=== PATIENT | male | born 1960 | race Caucasian/White ===

== ENCOUNTER 2018-11-06 12:43 | Emergency (ER) | payer SELFPAY ==
[2018-11-06] MEDS ORDERED: LIDOCAINE 1% INJ-PF (10 MG/ML) 30 ML SDV INJ ONE (13:26)
--- NOTE | 2018-11-06 15:55 | ER Document Report ---
ED General - General Mode of Arrival: Ambulatory Information source: Patient - HPI Patient complains to provider of: hand injury Onset: Other - 58 yo right hand dominant man that presents for evaluation of of injury to the right hand after hitting his hand against a table saw. HE had pain immediately thereafter and bleeding. He hasn't seen a physician in many years. has no known health problems. - General Chief Complaint: Laceration Stated Complaint: LEFT HAND INJURY Time Seen by Provider: 11/06/18 12:59 - Related Data Allergies/Adverse Reactions: No Known Allergies Allergy (Unverified 11/06/18 14:35) Past Medical History - General Information source: Patient - Social History Smoking Status: Former Smoker Smoking Education Provided: Yes Frequency of alcohol use: Rare Drug Abuse: None Family History: None Patient has suicidal ideation: No Patient has homicidal ideation: No Renal/ Medical History: Denies: Hx Peritoneal Dialysis Review of Systems - Review of Systems -: Yes All other systems reviewed and negative Physical Exam - General General appearance: Appears well, Alert - HEENT Head: Normocephalic, Atraumatic Eyes: Normal Pupils: PERRL - Respiratory Respiratory status: No respiratory distress Chest status: Nontender Breath sounds: Normal Chest palpation: Normal - Cardiovascular Rhythm: Regular Heart sounds: Normal auscultation Murmur: No - Abdominal Inspection: Normal Distension: No distension Bowel sounds: Normal Tenderness: Nontender Organomegaly: No organomegaly - Back Back: Normal, Nontender - Extremities General lower extremity: Normal inspection, Nontender, Normal ROM, Normal strength Shoulder: Normal Arm: Normal Elbow: Normal Forearm: Normal Wrist: Normal - the palm in normal in appearance There is normal ROM in the PIP , MIP, DIP There is near complete loss of the pad of the right index finger to a depth of 2-3 mm the third digit has a flap like laceration extening from the proximal MIP distally extending to the base of the DIP 4th digit with a similar lacceration 5th digit has near obliteration of the pad of the DIP with macerated and mushy tissue - Neurological Neuro grossly intact: Yes Cognition: Normal Orientation: AAOx4 Isak Coma Scale Eye Opening: Spontaneous Isak Coma Scale Verbal: Oriented Isak Coma Scale Motor: Obeys Commands [place] Coma Scale Total: 15 Speech: Normal Motor strength normal: LUE, RUE, LLE, RLE Sensory: Normal - Psychological Associated symptoms: Normal affect, Normal mood - Vital signs Vitals: Temp Pulse Resp BP Pulse Ox 97.7 F 103 H 20 134/94 H 97 11/06/18 12:59 11/06/18 12:59 11/06/18 12:59 11/06/18 12:59 11/06/18 12:59 Course - Re-evaluation Re-evalutation: 58 yo with wounds as described. Incidentally he was identified as having hyperglycemia. His wound was repaired as described. He was anesthetized and copiously irrigated via tap. Dr. Hwang loom control chain builder orthopedic surgeon loom control chain builder was consulted, he notes patient can be seen in clinic this week. The wound was repaired with dermabond as well as prolene. a reasonable cosmetic effect was obtained but hemostasis was achieved. The patient had an an intact motor exam thereafter. His initial minor deficit of loss of 2 point perception in the distal aspect of the fifth digit was unchanged. He was given a referral for orthopedic follow up in 2-5 days. He was instructed on wound dressing. He was instructed on suture removal. He was started on keflex prophylactically. He was started on metformin for his diabetes. He was incouraged to follow up for his diabetes care. He was ambulatory, able to tolerate po and well appearing at the time of discharge. (BERNICE HEWITT) - Vital Signs Vital signs: Temp Pulse Resp BP Pulse Ox 97.6 F 106 H 20 108/82 95 11/06/18 16:49 11/06/18 16:49 11/06/18 12:59 11/06/18 16:49 11/06/18 16:49 - Laboratory Laboratory results interpreted by me: 11/06/18 12:54 POC Glucose > 550 H* Procedures - Laceration/Wound Repair Right Hand Wound length (cm): 12 Wound's Depth, Shape: Into muscle, Irregular, Flap, Stellate, Contused tissue Laceration pre-procedure: Sterile PPE donned, Chloraprep applied, Sterile drapes applied Anesthetic type: 1% Lidocaine Volume Anesthetic (mLs): 10 Wound explored: Clean, No foreign body removed Irrigated w/ Saline (mLs): 5 - 5 minutes of aggressive tap water rinsing Wound Debrided: Moderate Wound Repaired With: Sutures Suture Size/Type: 4:0, Prolene Number of Sutures: 16 Layer Closure?: No Post-procedure NV exam normal: No - loss if sensation DIP 5th digit Complications: No Hands front picture: 1 - loss of skin 2 - lac 3 - lac 4 - lac 5 - lac 6 - lac Discharge - Discharge Clinical Impression: Contact with powered saw as cause of accidental injury, Tetanus Hand laceration Qualifiers: Encounter type: sequela Foreign body presence: unspecified Laterality: right Qualified Code(s): S61.411S - Laceration without foreign body of right hand, sequela Condition: Good Disposition: HOME, SELF-CARE Instructions: Laceration Care ([facility]), Prophylactic Antibiotic ([facility]), Tetanus Immunization Given ([facility]) Additional Instructions: You were seen today in the emergency department after the injury to your hand area You had evaluation including a physical exam. You are given a tetanus booster. You should follow-up with the orthopedic surgeon given to you here. Return to the emergency department in case you have fevers or chills. You been given an antibiotic to help prevent an infection. Keep your hand dry for the next 2 days. Following that you may do gentle cleansing with soap and water. Prescriptions: Cephalexin Monohydrate [Keflex 500 mg Capsule] 500 mg PO Q6H 5 Days capsule Hydrocodone/Acetaminophen [[place] 5-325 mg Tablet] 1 tab PO Q8H PRN #15 tablet PRN Reason: For Pain Scale 3-5 Metformin HCl [Glucophage 500 mg Tablet] 500 mg PO BID #60 tablet Forms: Smoking Cessation Education Referrals: NAVNEET CRUZ DO [ACTIVE STAFF] - Follow up in 3-5 days
[2018-11-06] MEDS ORDERED: DIPH/PERTUSS(ACELL)/TETANUS VAC/PF 0.5 ML SYR (>=10YO) IM ONE (16:00)
--- NOTE | 2018-11-06 17:07 | ER Document Report ---
Doctor's Note Notes: 11/06/18 17:06 Patient's emergency physician provider forgot to give the patient a prescription for Metformin to start treating his apparently new onset diabetes. He contacted me and asked if I would write the patient a prescription for metformin 500 mg twice a day and I agreed to do so. 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
[2018-11-06 17:14] VITALS: BP 108/82
== END 2018-11-06 17:14 | disposition home or self-care (01) ==
LOC: ER 12:43
PROC: 0HQFXZZ Repair Right Hand Skin, External Approach (ICD-10-PCS; principal; 2018-11-06)
DX: S61.411A Laceration without foreign body of right hand, initial encounter (principal); W29.8XXA Contact with other powered hand tools and household machinery, initial encounter; Z87.891 Personal history of nicotine dependence
CPT/HCPCS: 82962; 90715; 12044; J3490

== ENCOUNTER 2018-11-21 13:18 | Emergency (ER) | payer SELFPAY ==
--- NOTE | 2018-11-21 14:52 | ER Document Report ---
HPI - HPI Patient complains to provider of: suture removal Time Seen by Provider: 11/21/18 14:48 Onset: Other - 12/07/17 Pain Level: Denies Context: Presents emergency department with request for suture removal. Patient reports he sutures were applied on November 06 after he cut himself with a skill saw. Denies pain. Denies fever vomiting diarrhea. Denies numbness or tingling is able to move all fingers without problems. 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 IN LAST 30 DAYS: No - HEENT HEENT: Atraumatic - NECK Neck: Supple - RESPIRATORY Respiratory: No Respiratory Distress - CARDIOVASCULAR Cardiovascular: Regular Rate - MUSCULOSKELETAL/EXTREMETIES Musculoskeletal/Extremeties: MAEW, FROM, Non-Tender - NEURO Level of Consciousness: Awake, Alert, Appropriate Motor/Sensory: No Motor Deficit - DERM Integumentary: Warm, Dry Notes: Sutures intact sites benign, able to extend and flex without problems, denies numbness /tingling to finger tips. cap refill within normal, reports 4th digit has decreased sensation Course - Re-evaluation Re-evalutation: 11/21/18 15:04 Instructed on signs and symptoms of infection. Patient reports he did follow-up with orthopedic. He verbalized understanding to all instructions. 11/21/18 15:33 Sutures was removed areas cleaned well, wrapped with gauze for protection. Patient instructed again on signs and symptoms of infection. Instructed to return the emergency department for any concerns. He verbalized understanding.. - Vital Signs Vital signs: Temp Pulse Resp BP Pulse Ox 98.1 F 81 20 125/90 H 96 11/21/18 13:29 11/21/18 13:29 11/21/18 13:29 11/21/18 13:29 11/21/18 13:29 Discharge - Discharge Clinical Impression: Visit for suture removal Condition: Stable Disposition: HOME, SELF-CARE Instructions: Suture Removal Additional Instructions: *You have been treated for suture removal *Monitor the site for signs of infection such as increasing pain, redness, swelling, warmth *Keep the hand clean as discussed *Follow up with a primary care provider within one week for recheck *Return to ED for signs of infection, worsening condition, changes, needs Monitor your blood pressure. Your blood pressure was elevated today. This may be because you were anxious, in pain or because you need medication. It is i mportant to follow up with your primary care provider for full evaluation. Forms: Elevated Blood Pressure
[2018-11-21 15:31] VITALS: BP 124/90
== END 2018-11-21 15:35 | disposition home or self-care (01) ==
LOC: ER 13:18
DX: T14.8XXD Other injury of unspecified body region, subsequent encounter (principal); W29.8XXD Contact with other powered hand tools and household machinery, subsequent encounter; E11.9 Type 2 diabetes mellitus without complications; R20.8 Other disturbances of skin sensation

== ENCOUNTER → 2019-08-14 | Outpatient (CLI) | payer BC, OTHER ==
--- NOTE | 2019-08-15 08:21 | RADIOLOGY REPORT (SQ) ---
EXAM DESCRIPTION: MRI LUMBAR SPINE WITHOUT COMPLETED DATE/TIME: 08/14/2019 7:21 pm REASON FOR STUDY: M54.5 LOW BACK PAIN M54.5 LOW BACK PAIN COMPARISON: None. TECHNIQUE: Sagittal and Axial imaging includes T1, T2, STIR and gradient echo sequences. Coronal T2/ HASTE imaging. LIMITATIONS: None. FINDINGS: VISUALIZED UPPER ABDOMEN: Limited evaluation. No acute or suspicious findings suggested. SEGMENTATION: No transitional anatomy. The lowest well-developed disc space is labeled L5-S1. ALIGNMENT: Anatomic. VERTEBRAE: Intact. BONE MARROW: Mild endplate changes at L4-L5. DISC SIGNAL: Loss of normal water signal and height at L3-L4, L4-L5 and L5-S1. POSTERIOR ELEMENTS: Generally intact. No pars defect evident. HARDWARE: None in the spine. CORD AND CONUS: Normal in size and signal intensity. Conus at the appropriate level. SOFT TISSUES: No aortic aneurysm seen. No bulky retroperitoneal adenopathy or mass. No paraspinal mas s or fluid. L1-L2: No significant spinal stenosis or exit foraminal stenosis. L2-L3: No significant spinal stenosis or exit foraminal stenosis. L3-L4: There is broad-based annular disc bulging. There is a focal right lateral component which res ults in asymmetric narrowing of the right neural foramina. There is impingement on the exiting nerve root. L4-L5: Broad-based annular disc bulging. Facet arthropathy. There is a focal left lateral component resulting in asymmetric narrowing of the left neural foramina. L5-S1: Disc space narrowing and annular disc bulging with a focal left lateral component. There is m ild bilateral foraminal narrowing. LOWER THORACIC: Incompletely imaged. No stenosis seen. SACRUM: Visualized upper sacrum intact. OTHER: No other significant findings. IMPRESSION: 1. Multilevel spondylosis. 2. Annular bulging at L3-L4 with a right lateral component which results in asymmetric narrowing of the right neural foramina. There is impingement on the exiting nerve root. 3. Annular disc bulging at 4 5 along with facet arthropathy. There is a focal left lateral componen t resulting in asymmetric narrowing of the left neural foramina. 4. Disc space narrowing and annular disc bulging at L5-S1 there is a focal left paracentral componen t but no definite right nerve root impingement. There is narrowing of the right neural foramina. TECHNICAL DOCUMENTATION: JOB ID: [id number] [employer]- All Rights Reserved Reading location - IP/workstation name: [email or web address]
== END ==
LOC: RAD 18:10
PROVIDERS: ATTEND Physician Assistant
DX: M54.5 Low back pain (principal)
CPT/HCPCS: 72148